=== PATIENT | male | born 1960 | race Caucasian/White ===

== ENCOUNTER 2017-01-12 17:17 | Emergency (ER) | payer MEDICAID ==
[~2017-01-12] VITALS: Ht 190.5 cm; Wt 91.2 kg
[~2017-01-12 17:17] MED LIST: ALFU10TA3 PO; AMLO10TA2 PO; LOSA1TAB22 PO; MAGN400C PO; NITR0.4T22 SL; PANT40TA3 PO; PROP80CA3 PO
[2017-01-12 17:21] VITALS: BP 136/92
[2017-01-12] MEDS ORDERED: ALFU10TA3 PO (17:51)
[2017-01-12] MEDS ORDERED: PROP80CA3 PO (17:51)
[2017-01-12] MEDS ORDERED: LOSA1TAB22 PO (17:51)
[2017-01-12 18:02] LABS: BACTERIA,URINE 0 /HPF (0-FEW); BILIRUBIN,URINE NEG (NEG); CLARITY,URINE CLEAR; COLOR,URINE YELLOW; GLUCOSE,URINE NEG (NEG); NITRITE,URINE NEG (NEG); RBC,URINE OCC /HPF (0-2); SQUAMOUS EPITHELIAL CELL,UR OCC /LPF; UROBILINOGEN,URINE 0.2 mg/dL (0.2 mg/dL); WBC,URINE OCC /HPF (0-4)
== END 2017-01-12 18:11 | disposition home or self-care (01) ==
LOC: ER 17:17
DX: Z76.0 Encounter for issue of repeat prescription (principal); N40.0 Benign prostatic hyperplasia without lower urinary tract symptoms; K21.9 Gastro-esophageal reflux disease without esophagitis; I10 Essential (primary) hypertension; F41.9 Anxiety disorder, unspecified; E78.00 Pure hypercholesterolemia, unspecified; F10.20 Alcohol dependence, uncomplicated
CPT/HCPCS: 81001; 99283

== ENCOUNTER 2021-03-04 14:52 | Emergency (ER) | payer MEDICAID ==
[~2021-03-04] VITALS: Ht 190.5 cm; Wt 85.0 kg
[~2021-03-04 14:52] MED LIST changes: -ALFU10TA3 PO; +ALFU10TA4 PO; +AMLO-187 PO; -AMLO10TA2 PO
[2021-03-04 15:00] VITALS: BP 139/92
[2021-03-04] MEDS ORDERED: AMLO-186 PO (15:52)
[2021-03-04] MEDS ORDERED: LOSA1TAB22 PO (15:52)
--- NOTE | 2021-03-04 15:53 | PHYS DOC ---
Past History Past Medical History: Hypertension, Prostatitis (FLOR LAI APRN) Past Surgical History: No Surgical History (FLOR LAI APRN) Alcohol Use: None Drug Use: None (FLOR LAI APRN) General Adult EDM: Chief Complaint: MEDICATION REFILL HPI: HPI: Patient is a 60-year-old male presents with need for medication refill. Patient states he starts with his new PCP on March 26 and he will be out of his blood pressure medicine before then. Patient denies all complaints at this time. Patient has history of hypertension, enlarged prostate. (FLOR LAI APRN) Review of Systems: Review of Systems: ROS At least 10 ROS systems have been reviewed and are negative except as documented in the HPI. General: Negative except as outlined in HPI above. Skin: Negative except as outlined in HPI above. HEENT: Negative except as outlined in HPI above. Neck: Negative except as outlined in HPI above. Respiratory: Negative except as outlined in HPI above.. Cardiovascular: Negative except as outlined in HPI above. Abdomen: Negative except as outlined in HPI above. : Negative except as outlined in HPI above. Back/MSK: Negative except as outlined in HPI above. Neuro: Negative except as outlined in HPI above. Psych: Negative except as outlined in HPI above. (FLOR LAI APRN) Allergies: Allergies: Allergies Coded Allergies Type Severity Reaction Last Updated Verified No Known Drug Allergies 06/20/16 No (FLOR LAI APRN) Physical Exam: PE: Constitutional: Well developed, well nourished, no acute distress, non-toxic appearance. [] HENT: Normocephalic, atraumatic, bilateral external ears normal, oropharynx mo ist, no oral exudates, nose normal. [] Eyes: PERRLA, EOMI, conjunctiva normal, no discharge. [] Neck: Normal range of motion, no tenderness, supple, no stridor. [] Cardiovascular:Heart rate regular rhythm, no murmur [] Lungs & Thorax: Bilateral breath sounds clear to auscultation [] Abdomen: Bowel sounds normal, soft, no tenderness, no masses, no pulsatile masses. [] Skin: Warm, dry, no erythema, no rash. [] Back: No tenderness, no CVA tenderness. [] Extremities: No tenderness, no cyanosis, no clubbing, ROM intact, no edema. [] Neurologic: Alert and oriented X 3, normal motor function, normal sensory function, no focal deficits noted. [] Psychologic: Affect normal, judgement normal, mood normal. [] (FLOR LAI APRN) EKG: EKG: [] (FLOR LAI APRN) Radiology/Procedures: Radiology/Procedures: [] (FLOR LAI APRN) Heart Score: C/O Chest Pain: No Risk Factors: Risk Factors: DM, Current or recent (<one month) smoker, HTN, HLP, family history of CAD, obesity. Risk Scores: Score 0 - 3: 2.5% MACE over next 6 weeks - Discharge Home Score 4 - 6: 20.3% MACE over next 6 weeks - Admit for Clinical Observation Score 7 - 10: 72.7% MACE over next 6 weeks - Early Invasive Strategies (FLOR LAI APRN) Course & Med Decision Making: Course & Med Decision Making Pertinent Labs and Imaging studies reviewed. (See chart for details) [] 60-year-old male presents with medication refill. Patient is starting with a new primary care and will not have enough blood pressure medications to get him to the 14th. Patient is needing a refill on his losartan and his amlodipine. Advised patient to make sure he follows up with his new PCP so that he can get new prescriptions for his blood pressure medicine. Patient states he unde rstands discharge instructions. (FLOR LAI APRN) Dragon Disclaimer: Dragon Disclaimer: This electronic medical record was generated, in whole or in part, using a voice recognition dictation system. (FLOR LAI APRN) Attending Co-Sign The patient was seen and interviewed as well as examined at the bedside. The chart was reviewed. The case was discussed. Agree with the plan of care. (JORDAN HERNANDEZ DO) Departure Departure: Impression: Primary Impression: Medication refill Disposition: 01 HOME / SELF CARE / HOMELESS Condition: STABLE Referrals: PCPJERICHO (PCP) Patient Instructions: Medication Refill, Emergency Department Additional Instructions: Continue home with prescription for amlodipine and losartan. Make sure you keep your follow-up appointment with your new primary care so that you can have your prescription for the following month. Return to the emergency room for worsening symptoms or concerns. EMERGENCY DEPARTMENT GENERAL DISCHARGE INSTRUCTIONS Thank you for coming to [facility] (ED) today and trusting us with you care. We trust that you had a positivie experience in our Emergency Department. If you wish to speak to the department management, you may call the director at [phone]. YOUR FOLLOW UP INSTRUCTIONS ARE FOLLOWS: 1. Do you have a private Doctor? If you do not have a private doctor, please ask for a resource list of physicians or clinics that may be able to assist you with follow up care. 2. The Emergency Physician has interpreted your x-rays. The X-Ray specialist will also review them. If there is a change in the findings, you will be notified in 48 hours when at all possible. 3. A lab test or culture has been done, your results will be reviewed and you will be notified if you need a change in treatment. ADDITIONAL INSTRUCTIONS AND INFORMATION: 1. Your care today has been supervised by a physician who is specially trained in emergency care. Many problems require more than one evaluation for a complete diagnosis and treatment. We recommend that you schedule your follow up appointment as recommended to ensure complete treatment of you illness or injury. If you are unable to obtain follow up care and continue to have a problem, or if your condition worsens, we recommend that you return to the ED. 2. We are not able to safely determine your condition over the phone nor are we able to give sound medical advice over the phone. For these safety reasons, if you call for medical advice we will ask you to come to the ED for further evaluation. 3. If you have any questions regarding these discharge instructions please call the ED at [phone]. SAFETY INFORMATION: In the interest of safety, wellness, and injury prevention; we encourage you to wear your sealbelt, if you smoke; quite smoking, and we encourage family to use a protective helmet for bicycling and other sporting events that present an increased risk for head injury. IF YOUR SYMPTOMS WORSEN OR NEW SYMPTOMS DEVELOP, OR YOU HAVE CONCERNS ABOUT YOUR CONDITION; OR IF YOUR CONDITION WORSENS WHILE YOU ARE WAITING FOR YOUR FOLLOW UP APPOINTMENT; EITHER CONTACT YOUR PRIMARY CARE DOCTOR, THE PHYSICIAN WHOSE NAME AND NUMBER YOU WERE GIVEN, OR RETURN TO THE ED IMMEDIATELY. Scripts Amlodipine Besylate (AMLODIPINE BESYLATE) 5 Mg Tablet 1 TAB PO DAILY for htn for 30 Days, #30 TAB 5 Refills Prov: FLOR LAI APRN 03/04/21 Losartan/Hydrochlorothiazide (LOSARTAN-HCTZ 100-25 MG TAB) 1 Each Tablet 1 TAB PO DAILY for htn for 30 Days, #30 TAB 5 Refills Prov: FLOR LAI APRN 03/04/21 FLOR LAI APRN Mar 04, 2021 15:52 JORDAN HERNANDEZ DO Mar 05, 2021 06:57
== END 2021-03-04 15:55 | disposition home or self-care (01) ==
LOC: ER 14:52
DX: I10 Essential (primary) hypertension (principal); Z76.0 Encounter for issue of repeat prescription
CPT/HCPCS: 99281-25

== ENCOUNTER 2021-03-26 01:17 | Emergency (ER) | payer MEDICAID ==
[~2021-03-26] VITALS: Ht 190.5 cm; Wt 85.0 kg
[~2021-03-26 01:17] MED LIST changes: +AMLO-186 PO
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
[2021-03-26 02:06] LABS: BASO # 0.1 x10^3/uL (0.0-0.2); BASO % 1 % (0-3); EOS # 0.1 x10^3/uL (0.0-0.7); EOS % 2 % (0-3); LYMPH % 36 % (24-48); MEAN CORPUSCULAR HEMOGLOBIN 36 pg (25-35); MEAN CORPUSCULAR HGB CONC 34 g/dL (31-37); MEAN CORPUSCULAR VOLUME 105 fL (79-100); MONO # 0.6 x10^3/uL (0.0-1.1); MONO % 10 % (0-9); NEUT # 2.8 x10^3uL (1.8-7.7); NEUT % 51 % (31-73); PLATELET COUNT 216 x10^3/uL (140-400); RED BLOOD COUNT 4.19 x10^6/uL (4.30-5.70); RED CELL DISTRIBUTION WIDTH 13.7 % (11.5-14.5); WHITE BLOOD COUNT 5.6 x10^3/uL (4.0-11.0)
[2021-03-26 02:19] LABS: CALCIUM 8.5 mg/dL (8.5-10.1); CREATININE 0.9 mg/dL (0.7-1.3); GFR 86.1; POTASSIUM 3.1 mmol/L (3.5-5.1)
[2021-03-26] MEDS ORDERED: DIPHTH,PERTUSS(ACELL),TET TOX 0.5 ML DISP.SYRIN. VAX IM ONE (02:30)
[2021-03-26] MEDS ORDERED: ACETAMINOPHEN 500 MG TABLET PO ONE (02:30)
[2021-03-26] MEDS ORDERED: AMOXICILLIN/K CLAV 875/125MG TABLET. PO ONE (02:30)
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
[2021-03-26] MEDS ORDERED: AMOX1TAB11 PO (04:54)
[2021-03-26] MEDS ORDERED: POTASSIUM CHLORIDE 20 MEQ TABLET.ER. PO ONE (05:00)
[2021-03-26 05:11] VITALS: BP 132/86
== END 2021-03-26 05:16 | disposition home or self-care (01) ==
LOC: ER 01:17
DX: S01.85XA Open bite of other part of head, initial encounter (principal); W64.XXXA Exposure to other animate mechanical forces, initial encounter; Y93.89 Activity, other specified; Y92.89 Other specified places as the place of occurrence of the external cause; Y99.8 Other external cause status
CPT/HCPCS: 36415; 70450; 70486; 80048; 85025; 90471; 90715; 99284-25